=== PATIENT | female | born 1990 | race African-American/Black ===

== ENCOUNTER 2017-03-03 23:15 | Emergency (ER) | payer MEDICAID, OTHER ==
[~2017-03-03] VITALS: Ht 177.8 cm; Wt 63.5 kg
[2017-03-03] MEDS ORDERED: ANUSOL-HC25 MG RECTAL (23:39)
--- NOTE | 2017-03-03 23:39 | Emergency Room Report ---
History of Present Illness General Chief Complaint: Pain Source: Patient Present Illness HPI Is a 26-year-old female with 2 complaints. Her first complaint was that she's been having some rectal bleeding on and off for many years. Said that she wiped she noticed streaks of blood. No mass. No pain. No fever or chills. No nausea no vomiting. Her second complaint, which is her main complaint is that she has some STD exposure. She said a couple months ago she was told by her ex-boyfriend that he had Chlamydia. She was never treated. She has no symptom. She came in now to get treatment. Discharge. She was here before with herpes infection. Allergies: Coded Allergies: No Known Allergies (Unverified , 03/03/17) Patient History Past Medical History: see triage record, old chart reviewed Past Surgical History: none Pertinent Family History: none Social History: Denies: smoking Last Menstrual Period: FEBRUARY 06 Now: No : 1 Para: 1 Immunizations: other Reviewed Nursing Documentation: PMH: Agreed, PSxH: Agreed Nursing Documentation-PM Past Medical History: No Stated History Review of Systems Eye: Denies: blurred vision, eye pain ENT: Denies: ear pain, nose congestion, throat swelling Respiratory: Denies: cough, shortness of breath Cardiovascular: Denies: chest pain, palpitations Gastrointestinal: Denies: abdominal pain, diarrhea, nausea, vomiting Musculoskeletal: Denies: back pain, joint pain Skin: Denies: rash Neurological: Denies: headache, numbness Endocrine: Denies: increased thirst, increased urine Hematologic/Lymphatic: Denies: easy bruising All Other Systems: negative except mentioned in HPI Physical Exam Vital Signs Date Time Temp Pulse Resp B/P Pulse Ox O2 Delivery O2 Flow Rate FiO2 03/03/17 23:17 98.1 62 18 116/76 99 Room Air vitals normal Sp02 EP Interpretation: reviewed, normal General Appearance: well appearing, no apparent distress, alert Head: normocephalic, atraumatic Eyes: bilateral eye EOMI, bilateral eye PERRL ENT: hearing grossly normal, normal pharynx Neck: full range of motion, supple, no meningismus Respiratory: chest non-tender, lungs clear, normal breath sounds Cardiovascular #1: regular rate, rhythm, no murmur Gastrointestinal: normal bowel sounds, non tender, no mass, no organomegaly, no bruit, non-distended Musculoskeletal: back normal, gait/station normal, normal range of motion Psychiatric: mood/affect normal Skin: warm/dry Medical Decision Making Diagnostic Impression: Primary Impression: Exposure to STD Additional Impression: Hemorrhoids Qualified Codes: K64.9 - Unspecified hemorrhoids ER Course Is presents with exposure to STD. She is otherwise stable. Give her treatment for gonorrhea Chlamydia. Recommend outpatient testing for HIV, hepatitis, syphilis to name a few. This can be done anonymously. Last Vital Signs Date Time Temp Pulse Resp B/P Pulse Ox O2 Delivery O2 Flow Rate FiO2 03/03/17 23:17 98.1 62 18 116/76 99 Room Air Status: improved Disposition: HOME, SELF-CARE Condition: Stable Scripts Hydrocortisone Acetate* (ANUSOL-HC*) 25 Mg Supp.rect 1 SUPP RECTAL TWICE A DAY, #10 SUPP Prov: ELENI DUCKWORTH M.D. 03/03/17 Additional Instructions: Follow up with your doctor in 7 days. Return if worse. ELENI DUCKWORTH M.D. March 03, 2017 23:39
[2017-03-03] MEDS ORDERED: Azithromycin 250mg tab ORAL ONE (23:45)
[2017-03-04] VITALS: BP 116/76
== END 2017-03-04 00:05 | disposition home or self-care (01) ==
LOC: EMR 23:38
DX: K64.9 Unspecified hemorrhoids (principal); Z20.2 Contact with and (suspected) exposure to infections with a predominantly sexual mode of transmission
CPT/HCPCS: 96372; 99283; J0696; Q0144

== ENCOUNTER 2017-09-26 15:30 | Emergency (ER) | payer OTHER ==
[~2017-09-26] VITALS: Ht 177.8 cm; Wt 64.0 kg
[~2017-09-26 15:30] MED LIST: ANUSOL-HC25 MG RECTAL
[2017-09-26] MEDS ORDERED: METRONIDAZOLE60 GM TOPIC (15:46)
[2017-09-26] MEDS ORDERED: Lidocaine 1% MPF 10mg/ml 5ml INJ ONE (16:00)
[2017-09-26 16:04] LABS: APPEARANCE,URINE CLEAR; KETONES,URINE NEGATIVE (NEGATIVE); NITRITE,URINE NEGATIVE (NEGATIVE); PH,URINE 6 (4.5-8.0); PROTEIN,URINE NEGATIVE (NEGATIVE); UROBILINOGEN,URINE NORMAL MG/DL (0.0-1.0)
[2017-09-26 16:14] LABS: LEUKOCYTE ESTERASE ,URINE 1+ (NEGATIVE); RBC,URINE 0-2 /HPF (0 - 2)
[2017-09-26 16:15] LABS: BACTERIA,URINE OCCASIONAL /HPF; SQUAMOUS EPITHELIAL CELL,UR FEW /LPF (NONE/OCC)
[2017-09-26 16:20] VITALS: BP 108/68
--- NOTE | 2017-09-26 18:19 | Emergency Room Report ---
History of Present Illness General Chief Complaint: Female Urogenital Problems Source: Patient Present Illness HPI 26-year-old female presents to the emergency department complaining of dysuria, vaginal tenderness, burning sensation that she rates as 6/10 in severity after having unprotected intercourse last night. Patient states that she is not currently on control and is requesting Plan B. Patient also reports some lower abdominal pain she denies tenderness. Patient denies nausea, vomiting, fevers, chills, constipation or diarrhea. Patient wants to be tested for STDs she states that she was currently using metronidazole gel and does not know whether or not she has been having discharge because she's been using the gel. She denies bleeding. :swollen Tender lymph nodes, joint pain, external vaginal lesions or rash. Allergies: Coded Allergies: No Known Allergies (Unverified , 03/03/17) Patient History Past Medical History: see triage record Past Surgical History: none Pertinent Family History: none Last Menstrual Period: 09/04/17 Reviewed Nursing Documentation: PMH: Agreed, PSxH: Agreed Nursing Documentation-PMH Past Medical History: No Stated History Review of Systems All Other Systems: negative except mentioned in HPI Physical Exam Vital Signs Date Time Temp Pulse Resp B/P (MAP) Pulse Ox O2 Delivery O2 Flow Rate FiO2 09/26/17 15:40 98.2 61 17 103/65 98 Room Air Sp02 EP Interpretation: reviewed, normal General Appearance: no apparent distress, alert, GCS 15, non-toxic Head: normocephalic, atraumatic Eyes: bilateral eye normal inspection, bilateral eye PERRL ENT: hearing grossly normal, normal voice Neck: full range of motion Respiratory: lungs clear, normal breath sounds, speaking full sentences Cardiovascular #1: regular rate, rhythm Gastrointestinal: normal bowel sounds, non tender, soft, no guarding, no rebound Rectal: deferred Genitourinary: normal inspection, no CVA tenderness, cervix normal, ext genitalia/vag normal, os closed, other - vaginal wall laceration noted with scant bleeding at this time on the upper 12 o clock area. d/c noted in the vaginal vault. , no CMT Musculoskeletal: back normal, gait/station normal, normal range of motion, non- tender Neurologic: alert, oriented x3, responsive, motor strength/tone normal, sensory intact, speech normal Skin: normal color, no rash, warm/dry, well hydrated Medical Decision Making PA Attestation Dr. dupree is my supervising Physician whom patient management has been discussed with. Diagnostic Impression: Primary Impression: Vaginal laceration Qualified Codes: S31.41XA - Laceration without foreign body of vagina and vulva, initial encounter Additional Impression: Exposure to venereal disease ER Course 26-year-old female presents to the emergency department complaining of dysuria, vaginal tenderness, burning sensation that she rates as 6/10 in severity after having unprotected intercourse last night. Patient states that she is not currently on control and is requesting Plan B. Patient also reports some lower abdominal pain she denies tenderness. Patient denies nausea, vomiting, fevers, chills, constipation or diarrhea. Patient wants to be tested for STDs she states that she was currently using metronidazole gel and does not know whether or not she has been having discharge because she's been using the gel. She denies bleeding. :swollen Tender lymph nodes, joint pain, external vaginal lesions or rash. Ddx considered but are not limited to UTi , STI, G & C, trichomonas, Vaginitis , cervicitis, Bartholin gland cyst or cellulitis. Vital signs: are WNL, pt. is afebrile H&PE are most consistent with vaginal wall laceration and recent unprotected intercourse with need for emergency contraception in addition to prophylaxis for venereal disease exposure. ORDERS: - UA: unremarkable -Urine Hcg: Negative - Wet Mount Prep: negative ED INTERVENTIONS: -250mg Rocephin IM Discussed the patient prior to physical exam findings and encouraged followup with ENGINEERING DESIGNER also to avoid vaginal penetration for up to one week. D/W pt patient that she may experience some spotting. DISCHARGE: At this time pt. is stable for d/c to home. Will provide printed patient care instructions, and any necessary prescriptions. Care plan and follow up instructions have been discussed with the patient prior to discharge. Last Vital Signs Date Time Temp Pulse Resp B/P (MAP) Pulse Ox O2 Delivery O2 Flow Rate FiO2 09/26/17 15:40 98.2 61 17 103/65 98 Room Air Disposition: HOME, SELF-CARE Condition: Stable Scripts Levonorgestrel (PLAN B ONE-STEP) 1.5 Mg Tablet 1.5 MG PO ONCE, #1 TAB Prov: Marjan [email or web address] 09/26/17 Lidocaine (TOPICAINE 5) 113 Gm Gel..gram. 1 APPLIC TP TID Y for For Pain, #113 GM Prov: Marjan Tinajero 09/26/17 Referrals: [facility],REFERRING (PCP) Patient Instructions: Vaginal Laceration Additional Instructions: Take medications as directed. Follow up with a OBGYN in 3-5 days, even if your symptoms have resolved. * * --Please review list of primary care clinics, if you do not already have a primary care provider Return sooner to ED if new symptoms occur, or current symptoms become worse. - Please note that this Emergency Department Report was dictated using [employer] miller helper technology software, occasionally this can lead to erroneous entry secondary to interpretation by the dictation equipment. Marjan Tinajero Sep 26, 2017 18:19
[2017-09-26] MEDS ORDERED: PLAN B ONE-STE1.5 MG PO (18:23)
[2017-09-26] MEDS ORDERED: TOPICAINE 5113 GM TP (18:23)
[2017-09-26 18:40] VITALS: BP 116/72
[2017-09-26] MEDS ORDERED: VIBRAMYCIN100 MG ORAL (21:07)
== END 2017-09-26 18:40 | disposition home or self-care (01) ==
LOC: EMR 16:00
DX: S31.41XA Laceration without foreign body of vagina and vulva, initial encounter (principal); X58.XXXA Exposure to other specified factors, initial encounter; Y92.89 Other specified places as the place of occurrence of the external cause; Z20.2 Contact with and (suspected) exposure to infections with a predominantly sexual mode of transmission
CPT/HCPCS: 81003; 81025; 87210; 96372; 99284; J0696

== ENCOUNTER 2017-10-30 03:40 | Emergency (ER) | payer OTHER ==
[~2017-10-30] VITALS: Ht 177.8 cm; Wt 64.9 kg
[~2017-10-30 03:40] MED LIST changes: +METRONIDAZOLE60 GM TOPIC; +PLAN B ONE-STE1.5 MG PO; +TOPICAINE 5113 GM TP; +VIBRAMYCIN100 MG ORAL
[2017-10-30] MEDS ORDERED: NKM (03:53)
[2017-10-30 03:55] VITALS: BP 112/80
[2017-10-30 04:45] VITALS: BP 112/80
--- NOTE | 2017-10-30 04:50 | Emergency Room Report ---
History of Present Illness General Chief Complaint: Pain Source: Patient Present Illness HPI 26-year-old female no significant past medical history presents with her right arm pain. Patient states that she gradually noticed that her right forearm was hurting. Denies any trauma. States that it is her whole arm. Has been able to use it without difficulty. Denies any fever chills no trauma Allergies: Coded Allergies: No Known Allergies (Unverified , 03/03/17) Patient History Past Medical History: see triage record Past Surgical History: none Pertinent Family History: none Last Menstrual Period: now Now: No Reviewed Nursing Documentation: PMH: Agreed, PSxH: Agreed Nursing Documentation-PMH Past Medical History: No Stated History Review of Systems All Other Systems: negative except mentioned in HPI Physical Exam Vital Signs Date Time Temp Pulse Resp B/P (MAP) Pulse Ox O2 Delivery O2 Flow Rate FiO2 10/30/17 03:47 97.2 62 16 112/80 98 Room Air Sp02 EP Interpretation: reviewed, normal General Appearance: normal inspection, well appearing, no apparent distress, alert, GCS 15, non-toxic Head: normocephalic, atraumatic Eyes: bilateral eye normal inspection, bilateral eye PERRL, bilateral eye EOMI ENT: normal ENT inspection, normal pharynx, normal voice, moist mucus membranes Neck: normal inspection, full range of motion, supple Respiratory: normal inspection, lungs clear, normal breath sounds, no respiratory distress, no retraction, no wheezing, speaking full sentences, chest symmetrical Cardiovascular #1: normal inspection, regular rate, rhythm, no edema, normal capillary refill Cardiovascular #2: 2+ radial (R), 2+ radial (L) Gastrointestinal: normal inspection, non tender, soft, non-distended, no guarding Musculoskeletal: normal inspection, back normal, normal range of motion, non- tender, other - Right arm without any bony abnormalities, full range of motion, no ecchymosis, no redness, no tenderness throughout Neurologic: normal inspection, alert, oriented x3, responsive, motor strength/ tone normal, sensory intact, normal gait, speech normal Psychiatric: other - withdrawn affect Skin: normal inspection, normal color, no rash, warm/dry, well hydrated, normal turgor Medical Decision Making Diagnostic Impression: Primary Impression: Musculoskeletal pain of right upper extremity ER Course 26-year-old female, with right forearm pain, no trauma, took Aleve with relief DDX: Contusion, not concern was any fracture, very benign physical exam, has full range of motion, no signs of cellulitis, no swelling Plan: None in the emergency room, the patient already took Aleve ER course: Patient has remained stable during ED stay. She became extremely angry at me and wanted to speak to another doctor as she wants another opinion. States that she wants blood work for her arm pain. I informed patient that there is currently no indication for any blood work. She is nontoxic-appearing and her physical exam is unremarkable Disposition: Patient is to be discharged to home. Patient is instructed to follow up with their primary care doctor within 5 days. Please note that this Emergency Department Report was dictated using [employer] finisher technology software, occasionally this can lead to erroneous entry secondary to interpretation by the dictation equipment Last Vital Signs Date Time Temp Pulse Resp B/P (MAP) Pulse Ox O2 Delivery O2 Flow Rate FiO2 10/30/17 03:55 97.2 62 16 112/80 98 Room Air Disposition: HOME, SELF-CARE Condition: Improved Patient Instructions: Musculoskeletal Pain Amna Washington M.D. Oct 30, 2017 04:50
== END 2017-10-30 04:45 | disposition home or self-care (01) ==
LOC: EMR 04:29
DX: M79.601 Pain in right arm (principal)
CPT/HCPCS: 99282

== ENCOUNTER 2018-02-07 21:52 | Emergency (ER) | payer OTHER ==
[~2018-02-07] VITALS: Ht 182.9 cm; Wt 63.0 kg
[~2018-02-07 21:52] MED LIST changes: +NKM
[2018-02-07 22:29] LABS: APPEARANCE,URINE SLIGHTLY CLOUDY; BILIRUBIN, URINE NEGATIVE (NEGATIVE); GLUCOSE, URINE (UA) NEGATIVE (NEGATIVE); KETONES,URINE NEGATIVE (NEGATIVE); LEUKOCYTE ESTERASE ,URINE 2+ (NEGATIVE); NITRITE,URINE NEGATIVE (NEGATIVE); PH,URINE 7 (4.5-8.0); PROTEIN,URINE 1+ (NEGATIVE); UROBILINOGEN,URINE 1 MG/DL (0.0-1.0)
[2018-02-07 22:30] LABS: COLOR,URINE YELLOW
--- NOTE | 2018-02-07 22:56 | Emergency Room Report ---
History of Present Illness General Chief Complaint: Vaginal Source: Patient Present Illness HPI Is a 27-year-old female with no past medical history. She presents with chief complaint of a discharge for the last couple weeks. She also had recent STD testing was negative per patient. No history of STD. Last month was treated for bacterial vaginosis with MetroGel. That did not improve very much. Did some douching with vinegar. No other complaint. Does have discharged with vaginal itching. She is also asking for plan B was control pill. Allergies: Coded Allergies: No Known Allergies (Unverified , 03/03/17) Patient History Past Medical History: see triage record, old chart reviewed Past Surgical History: none Pertinent Family History: none Social History: Denies: smoking Last Menstrual Period: 01/25/18 Now: No Immunizations: other Reviewed Nursing Documentation: PMH: Agreed; PSxH: Agreed Nursing Documentation-PMH Past Medical History: No Stated History Review of Systems Eye: Denies: eye pain, blurred vision ENT: Denies: ear pain, nose congestion, throat swelling Respiratory: Denies: cough, shortness of breath Cardiovascular: Denies: chest pain, palpitations Gastrointestinal: Denies: abdominal pain, diarrhea, nausea, vomiting Genitourinary: Reports: vag bleed/dc Musculoskeletal: Denies: back pain, joint pain Skin: Denies: rash Neurological: Denies: headache, numbness Endocrine: Denies: increased thirst, increased urine Hematologic/Lymphatic: Denies: easy bruising All Other Systems: negative except mentioned in HPI Physical Exam Vital Signs Date Time Temp Pulse Resp B/P (MAP) Pulse Ox O2 Delivery O2 Flow Rate FiO2 02/07/18 21:59 97.8 71 16 97/58 97 Room Air 97.9 vitals normal Sp02 EP Interpretation: reviewed, normal General Appearance: well appearing, no apparent distress, alert Head: normocephalic, atraumatic Eyes: bilateral eye PERRL, bilateral eye EOMI ENT: hearing grossly normal, normal pharynx Neck: full range of motion, supple, no meningismus Respiratory: chest non-tender, lungs clear, normal breath sounds Cardiovascular #1: regular rate, rhythm, no murmur Gastrointestinal: normal bowel sounds, non tender, no mass, no organomegaly, no bruit, non-distended Genitourinary: other - Pelvic exam done with female RN as network security engineer. External exam normal. Internal exam show yellowish discharge. no cervical motion tenderness. No adnexal tenderness. Musculoskeletal: back normal, gait/station normal, normal range of motion Neurologic: alert, oriented x3 Psychiatric: mood/affect normal Skin: warm/dry Medical Decision Making Diagnostic Impression: Primary Impression: Bacterial vaginosis ER Course Patient with bacterial vaginosis. No evidence of UTI or ectopic. We'll discharge home. Last Vital Signs Date Time Temp Pulse Resp B/P (MAP) Pulse Ox O2 Delivery O2 Flow Rate FiO2 02/07/18 21:59 97.8 71 16 97/58 97 Room Air 97.9 Status: improved Disposition: HOME, SELF-CARE Condition: Stable Scripts Levonorgestrel (PLAN B ONE-STEP) 1.5 Mg Tablet 1.5 MG PO DAILY, #1 TAB Prov: ELENI DUCKWORTH M.D. 02/07/18 Metronidazole* (FLAGYL*) 500 Mg Tablet 500 MG ORAL BID, #14 TAB Prov: ELENI DUCKWORTH M.D. 02/07/18 Referrals: [facility],REFERRING (PCP) Additional Instructions: Follow-up your DrDakota in 7 days. Return if symptom worsen. ELENI DUCKWORTH M.D. Feb 07, 2018 22:56
[2018-02-07] MEDS ORDERED: METRONIDAZOLE500 MG ORAL (23:21)
[2018-02-07] MEDS ORDERED: PLAN B ONE-STE1.5 MG PO (23:21)
[2018-02-07 23:30] VITALS: BP 100/60
[2018-02-07 23:31] VITALS: BP 100/60
== END 2018-02-07 23:31 | disposition home or self-care (01) ==
LOC: EMR 22:19
DX: N76.0 Acute vaginitis (principal); B96.89 Other specified bacterial agents as the cause of diseases classified elsewhere
CPT/HCPCS: 81003; 81025; 87210; 99284

== ENCOUNTER 2018-04-04 12:46 | Emergency (ER) | payer OTHER ==
[~2018-04-04] VITALS: Ht 177.8 cm; Wt 60.8 kg
[~2018-04-04 12:46] MED LIST changes: +METRONIDAZOLE500 MG ORAL
[2018-04-04 14:18] LABS: APPEARANCE,URINE CLEAR; BILIRUBIN, URINE NEGATIVE (NEGATIVE); COLOR,URINE PALE YELLOW; GLUCOSE, URINE (UA) NEGATIVE (NEGATIVE); KETONES,URINE NEGATIVE (NEGATIVE); LEUKOCYTE ESTERASE ,URINE 1+ (NEGATIVE); NITRITE,URINE NEGATIVE (NEGATIVE); PH,URINE 7 (4.5-8.0); PROTEIN,URINE NEGATIVE (NEGATIVE); UROBILINOGEN,URINE NORMAL MG/DL (0.0-1.0)
--- NOTE | 2018-04-04 14:23 | Emergency Room Report ---
History of Present Illness General Chief Complaint: Abdominal Pain Source: Patient Present Illness HPI 27-year-old female patient presents to ER complaining of missed menstrual period and midepigastric pain. Denies pain acutely. Patient reports that last sexual activity was a month and a half ago, states she wants no other possible causes of missed menstrual period. Denies acute symptoms at this time. Denies dysuria, hematuria, abdominal pain, vaginal discharge, rash. Also complains of sore throat. Reports throat pain when running, and throat gets dry. Denies cough, reports history of smoking marijuana ER to arrival in ER. Denies vomiting, chest pain, shortness of breath. Denies fever. Denies other acute symptoms. reports smoking marijuana prior to ER visit. Allergies: Coded Allergies: No Known Allergies (Unverified , 03/03/17) Patient History Past Medical History: see triage record Last Menstrual Period: 02/28/18 Now: No - unknown Reviewed Nursing Documentation: PMH: Agreed; PSxH: Agreed Nursing Documentation-PMH Past Medical History: No Stated History Review of Systems All Other Systems: negative except mentioned in HPI Physical Exam Vital Signs Date Time Temp Pulse Resp B/P (MAP) Pulse Ox O2 Delivery O2 Flow Rate FiO2 04/04/18 12:57 98.5 61 16 107/73 97 Room Air 98.4 Sp02 EP Interpretation: reviewed, normal General Appearance: well appearing, no apparent distress, alert, GCS 15, non- toxic Head: normocephalic, atraumatic Eyes: bilateral eye normal inspection, bilateral eye PERRL ENT: hearing grossly normal, normal pharynx, no angioedema, normal voice, TMs + canals normal, uvula midline, moist mucus membranes Neck: full range of motion Respiratory: lungs clear, normal breath sounds, no rhonchi, no respiratory distress, no accessory muscle use, no wheezing, speaking full sentences Cardiovascular #1: regular rate, rhythm, no edema Gastrointestinal: non tender, soft, no mass, non-distended, no guarding, no rebound, other - negative Goyal, negative Rovsing Genitourinary: no CVA tenderness Musculoskeletal: back normal, digits/nails normal, gait/station normal, normal range of motion, non-tender Neurologic: alert, oriented x3, responsive, motor strength/tone normal, sensory intact Psychiatric: mood/affect normal Skin: no rash Lymphatic: no adenopathy Medical Decision Making PA Attestation Dr. Mejía is my supervising Physician whom patient management has been discussed with. Diagnostic Impression: Primary Impression: Amenorrhea Additional Impression: Sore throat ER Course Pt presents to ED c/o urinary symptoms. DDX considered but are not limited to cystitis, pyelonephritis, STI, vaginitis, . DDX considered but are not limited to pharyngitis, laryngitis, URI, peritonsillar abscess, tonsillitis. Low suspicion for peritonsillar abscess, no neck stiffness, no hot potato voice , no stridor. VITAL SIGNS are WNL, patient is afebrile. Ordered UA and urine . ER COURSE Physical exam benign, no tenderness to palpation of the abdomen, negative Goyal , no CVA tenderness bilaterally. No pharyngeal erythema, no tonsillar swelling or exudates, moist mucous membranes. Informed patient that symptoms likely related to her throat drying out during running. patient denies acute symptoms at this time. Drink plenty of fluids. Salt water gargles. UA results show negative nitrites, UA unremarkable, patient asymptomatic, low suspicion for UTI, does not require treatment with abx at this time. Urine negative. Informed patient that multiple possible causes of this. Including but not limited to hormone imbalance vs stress vs medication use. Informed patient to follow-up with primary care provider and discuss referral to CHIEF DIGITAL OFFICER for further evaluation and treatment as needed. If concern for STI, followup with STI clinic for testing and treatment. Denies STI concern. wear condoms during sex. do not smoke marijuana. Patient is resting comfortably in chair, nontoxic appearing, in no acute distress. Patient states they feel better and is ready to go home. Informed patient's to schedule appointment with PCP for further treatment and referral for multiple complaints. Provided patient with contact list for low cost and free healthcare clinics so that she may follow-up sooner if unable to make appointment. DISCHARGE -Rx provided for Tylenol Patient is stable for discharge. Patient resting comfortably, in no acute distress, nontoxic appearing, talking without difficulty. Will provide with patient care instructions and any necessary prescriptions. Patient understands and agrees to treatment plan. Patient encouraged to drink plenty of fluids. Patient to take medication as instructed. Care plan and follow-up instructions provided. Patient questions asked and answered. Reports understanding and agreement to treatment plan. Patient instructed to follow-up with primary care provider in 3 - 5 days. ER precautions given. Patient instructed to return to ER immediately for any new or worsening of symptoms. Including but not limited to fever, abdominal pain , intractable vomiting. - Please note that this Emergency Department Report was dictated using [employer] billing clerk technology software, occasionally this can lead to erroneous entry secondary to interpretation by the dictation equipment. Labs Test 04/04/18 14:00 Urine Color Pale yellow Urine Appearance Clear Urine pH 7 (4.5-8.0) Urine Specific [place] 1.005 (1.005-1.035) Urine Protein Negative (NEGATIVE) Urine Glucose (UA) Negative (NEGATIVE) Urine Ketones Negative (NEGATIVE) Urine Occult Blood Negative (NEGATIVE) Urine Nitrite Negative (NEGATIVE) Urine Bilirubin Negative (NEGATIVE) Urine Urobilinogen Normal MG/DL (0.0-1.0) Urine Leukocyte Esterase 1+ (NEGATIVE) Urine RBC 0-2 /HPF (0 - 2) Urine WBC 0-2 /HPF (0 - 2) Urine Squamous Epithelial Cells Few /LPF (NONE/OCC) Urine Bacteria Occasional /HPF (NONE) Urine HCG, Qualitative Negative (NEGATIVE) Last Vital Signs Date Time Temp Pulse Resp B/P (MAP) Pulse Ox O2 Delivery O2 Flow Rate FiO2 04/04/18 12:57 98.5 61 16 107/73 97 Room Air 98.4 Disposition: HOME, SELF-CARE Condition: Stable Scripts Acetaminophen* (TYLENOL EXTRA STRENGTH*) 500 Mg Tablet 500 MG ORAL Q8H PRN for Prn Headache/Temp > 101, #30 TAB 0 Refills Prov: Harpreet Del Rosario 04/04/18 Patient Instructions: Primary Amenorrhea, Secondary Amenorrhea, Sore Throat, [id number] Additional Instructions: Followup with primary care provider in 3 -5 days. Follow-up with CHIEF DIGITAL OFFICER in 3-5 days. Take medications as directed. Salt water gargles for sore throat. Do not smoke marijuana. Patient questions asked and answered. ER precautions given, patient instructed to return to ER immediately for any new or worsening of symptoms. Harpreet Del Rosario Apr 04, 2018 14:23
[2018-04-04 14:45] VITALS: BP 107/73
[2018-04-04] MEDS ORDERED: TYLENOL EXTRA500 MG ORAL (15:07)
[2018-04-04 16:08] VITALS: BP 107/73
== END 2018-04-04 16:08 | disposition home or self-care (01) ==
LOC: EMR 15:20
DX: N91.2 Amenorrhea, unspecified (principal); R07.0 Pain in throat
CPT/HCPCS: 81003; 81025; 99283

== ENCOUNTER 2018-06-02 22:53 | Emergency (ER) | payer OTHER ==
[~2018-06-02] VITALS: Ht 177.8 cm; Wt 60.3 kg
[~2018-06-02 22:53] MED LIST changes: +TYLENOL EXTRA500 MG ORAL
[2018-06-02 23:33] VITALS: BP 129/83
[2018-06-02] MEDS ORDERED: CEPHALEXIN500 MG ORAL (23:42)
[2018-06-02] MEDS ORDERED: HYDROCORTISONE-30 GM TOPIC (23:42)
--- NOTE | 2018-06-03 01:14 | Emergency Room Report ---
History of Present Illness General Chief Complaint: Pain Source: Patient Present Illness HPI 27-year-old female presents ED complaining of rash to her left foot. States that symptoms started after she got a pedicure on Thursday. States she has itchiness to her foot and leg. States there is a rash on the top of her foot. Denies any fevers chills. Denies any discharge. No other aggravating relieving factors. Denies any other associated symptoms Allergies: Coded Allergies: No Known Allergies (Unverified , 03/03/17) Patient History Past Medical History: none Past Surgical History: none Pertinent Family History: none Social History: Denies: smoking, alcohol use, drug use Last Menstrual Period: may 06, 2018 Now: No Immunizations: UTD Reviewed Nursing Documentation: PMH: Agreed; PSxH: Agreed Nursing Documentation-PMH Past Medical History: No Stated History Review of Systems All Other Systems: negative except mentioned in HPI Physical Exam Vital Signs Date Time Temp Pulse Resp B/P (MAP) Pulse Ox O2 Delivery O2 Flow Rate FiO2 06/02/18 23:20 98.8 83 18 129/83 99 Room Air 98.8 Sp02 EP Interpretation: reviewed, normal General Appearance: no apparent distress, alert, GCS 15, non-toxic Head: normocephalic Eyes: bilateral eye normal inspection, bilateral eye PERRL ENT: normal ENT inspection Neck: normal inspection Respiratory: normal inspection Cardiovascular #1: normal inspection Gastrointestinal: normal inspection Rectal: deferred Genitourinary: no CVA tenderness Musculoskeletal: back normal, gait/station normal, normal range of motion, non- tender Neurologic: alert, oriented x3, responsive, motor strength/tone normal, sensory intact, speech normal Psychiatric: normal inspection Skin: rash - vesicular rash to dorsum of foot Lymphatic: normal inspection Medical Decision Making Diagnostic Impression: Primary Impression: Rash ER Course Hospital Course 27-year-old female presents to ED with itchiness/rash to foot Differential diagnoses include: Cellulitis, dermatitis, insect bite, abscess Clinical course Patient placed on stretcher. After initial history, physical exam reveals a young female in no acute distress. On exam there is a patch on the dorsum of foot with vesicles. Nonerythematous. No induration. The foot is warm and dry. No swelling or erythema or induration suggestive of cellulitis. The area between the toes is clean and dry with no signs of a fungal infection Discussed findings with patient. Reassurance given. We will treat as contact dermatitis. Recommend close follow-up with dermatology Diagnosis - rash stable and discharged to home with prescription for hydrocortisone cream, keflex. Instructed to followup with PMD. Instructed return to ED if symptoms recur or worsen Last Vital Signs Date Time Temp Pulse Resp B/P (MAP) Pulse Ox O2 Delivery O2 Flow Rate FiO2 06/02/18 23:33 98.8 18 129/83 99 Room Air 98.8 06/02/18 23:20 83 Status: improved Disposition: HOME, SELF-CARE Condition: Stable Scripts Cephalexin* (KEFLEX*) 500 Mg Capsule 500 MG ORAL EVERY 6 HOURS for 7 Days, CAP Prov: Obey Mejía MD 06/02/18 Hydrocortisone/Aloe Vera 1%* (HYDROCORTISONE-ALOE 1% CREAM*) Y Cr 1 APPLIC TOPIC Q6H PRN for Itching, #30 GM Prov: Obey Mejía MD 06/02/18 Referrals: [facility],REFERRING (PCP) Patient Instructions: Contact Dermatitis, [id number] Obey Mejía MD Jun 03, 2018 01:14
== END 2018-06-02 23:45 | disposition home or self-care (01) ==
LOC: EMR 23:40
DX: R21 Rash and other nonspecific skin eruption (principal); L29.9 Pruritus, unspecified
CPT/HCPCS: 99283

== ENCOUNTER 2018-09-09 04:03 | Emergency (ER) | payer OTHER ==
[~2018-09-09] VITALS: Ht 177.8 cm; Wt 61.7 kg
[~2018-09-09 04:03] MED LIST changes: +CEPHALEXIN500 MG ORAL; +HYDROCORTISONE-30 GM TOPIC
[2018-09-09 04:30] VITALS: BP 112/71
--- NOTE | 2018-09-09 04:54 | Emergency Room Report ---
History of Present Illness General Chief Complaint: Female Urogenital Problems Source: Patient Present Illness HPI This is a 27-year-old female with no cerumen past medical history. She presents with chief complaint of vaginal pain and itching. Onset for about a week now. Also with a greenish yellowish discharge. She does use fragrant soap to clean herself. Currently not sexually active for several months. No bleeding. Does have some dysuria. Denies any other complaint. Allergies: Coded Allergies: No Known Allergies (Unverified , 03/03/17) Patient History Past Medical History: see triage record, old chart reviewed Past Surgical History: none Pertinent Family History: none Social History: Denies: smoking Last Menstrual Period: 07/2018 Now: No Immunizations: other Reviewed Nursing Documentation: PMH: Agreed; PSxH: Agreed Nursing Documentation-PMH Past Medical History: No Stated History Review of Systems Eye: Denies: eye pain, blurred vision ENT: Denies: ear pain, nose congestion, throat swelling Respiratory: Denies: cough, shortness of breath Cardiovascular: Denies: chest pain, palpitations Gastrointestinal: Denies: abdominal pain, diarrhea, nausea, vomiting Genitourinary: Reports: dysuria, vag bleed/dc Musculoskeletal: Denies: back pain, joint pain Skin: Denies: rash Neurological: Denies: headache, numbness Endocrine: Denies: increased thirst, increased urine Hematologic/Lymphatic: Denies: easy bruising All Other Systems: negative except mentioned in HPI Physical Exam Vital Signs Date Time Temp Pulse Resp B/P (MAP) Pulse Ox O2 Delivery O2 Flow Rate FiO2 09/09/18 04:10 98.2 58 16 113/73 99 Room Air vitals normal Sp02 EP Interpretation: reviewed, normal General Appearance: well appearing, no apparent distress, alert Head: normocephalic, atraumatic Eyes: bilateral eye PERRL, bilateral eye EOMI ENT: hearing grossly normal, normal pharynx Neck: full range of motion, supple, no meningismus Respiratory: chest non-tender, lungs clear, normal breath sounds Cardiovascular #1: regular rate, rhythm, no murmur Gastrointestinal: normal bowel sounds, non tender, no mass, no organomegaly, no bruit, non-distended Genitourinary: other - Pelvic exam done with female RN as customer associate. External exam normal. Internal exam show yellowish discharge. Musculoskeletal: back normal, gait/station normal, normal range of motion Psychiatric: mood/affect normal Skin: warm/dry Medical Decision Making Diagnostic Impression: Primary Impression: Bacterial vaginosis ER Course Patient presents with vaginal discharge consistent with bacterial vaginosis. No evidence of Trichomonas or STD. Nontender tract infection. Not . We'll discharge home. Last Vital Signs Date Time Temp Pulse Resp B/P (MAP) Pulse Ox O2 Delivery O2 Flow Rate FiO2 09/09/18 04:10 98.2 58 16 113/73 99 Room Air Status: improved Disposition: HOME, SELF-CARE Condition: Stable Scripts Metronidazole* (FLAGYL*) 500 Mg Tablet 500 MG ORAL BID, #14 TAB Prov: Ulisses Hill MD 09/09/18 Referrals: [facility],REFERRING (PCP) Additional Instructions: Follow-up with your doctor in 7 days. No douching or fragrant soap. Return if symptom worsen. Ulisses Hill MD Sep 09, 2018 04:54
[2018-09-09 05:13] LABS: APPEARANCE,URINE CLEAR; BILIRUBIN, URINE NEGATIVE (NEGATIVE); GLUCOSE, URINE (UA) NEGATIVE (NEGATIVE); KETONES,URINE NEGATIVE (NEGATIVE); NITRITE,URINE NEGATIVE (NEGATIVE); PH,URINE 6.5 (4.5-8.0); PROTEIN,URINE NEGATIVE (NEGATIVE); UROBILINOGEN,URINE NORMAL MG/DL (0.0-1.0)
[2018-09-09 05:26] LABS: COLOR,URINE YELLOW; LEUKOCYTE ESTERASE ,URINE 1+ (NEGATIVE)
[2018-09-09] MEDS ORDERED: METRONIDAZOLE500 MG ORAL (05:55)
[2018-09-09 05:58] VITALS: BP 112/71
== END 2018-09-09 05:58 | disposition home or self-care (01) ==
LOC: EMR 04:41
DX: N76.0 Acute vaginitis (principal); B96.89 Other specified bacterial agents as the cause of diseases classified elsewhere
CPT/HCPCS: 81003; 81025; 87210; 99283

== ENCOUNTER 2018-12-15 20:33 | Emergency (ER) | payer OTHER ==
[~2018-12-15] VITALS: Ht 177.8 cm; Wt 63.5 kg
[2018-12-15 21:23] VITALS: BP 122/80
--- NOTE | 2018-12-15 21:26 | NUR ---
ED Nurse Note: Pt states sore throat, coughing, pain when breathing, both earache, runny nose for 10 days. pain level 8/10. pt vital signs are within normal limits. pt is alert and oriented times 4. pt is able to ambulate. respritory assessment and vital signs are within normal limits.
--- NOTE | 2018-12-15 21:32 | Emergency Room Report ---
History of Present Illness General Chief Complaint: Flu Like Symptoms Source: Patient Present Illness HPI Patient presents with other family member Reports that she is the aunt of another patient who is here patient has had some URI symptoms including sore throat body ache mild cough Denies any vomiting or diarrhea symptoms ongoing now for the past 7 days Denies any recent travel denies any rash Sore throat is 5 out of 10 worse with swallowing Allergies: Coded Allergies: No Known Allergies (Unverified , 03/03/17) Patient History Past Medical History: see triage record Pertinent Family History: none Last Menstrual Period: Nov 29, 2018 Now: No Reviewed Nursing Documentation: PMH: Agreed; PSxH: Agreed Nursing Documentation-PMH Past Medical History: No Stated History Review of Systems All Other Systems: negative except mentioned in HPI Physical Exam Vital Signs Date Time Temp Pulse Resp B/P (MAP) Pulse Ox O2 Delivery O2 Flow Rate FiO2 12/15/18 21:16 98.4 91 18 124/81 98 Room Air 12/15/18 21:23 99 Sp02 EP Interpretation: reviewed, normal General Appearance: well appearing, no apparent distress Head: normocephalic, atraumatic Eyes: bilateral eye PERRL, bilateral eye EOMI ENT: hearing grossly normal, TMs + canals normal, uvula midline, pharyngeal erythema Neck: full range of motion, supple, no meningismus, no bony tend Respiratory: lungs clear, normal breath sounds, no rhonchi, no respiratory distress, no retraction, no accessory muscle use Cardiovascular #1: normal peripheral pulses, regular rate, rhythm, no edema, no gallop, no JVD, no murmur Gastrointestinal: normal bowel sounds, non tender, soft, no mass, no organomegaly, non-distended, no guarding, no hernia, no pulsatile mass, no rebound Genitourinary: no CVA tenderness Musculoskeletal: normal inspection Neurologic: oriented x3, responsive, joy operator helper III-XII nml as tested, motor strength/ tone normal, sensory intact Psychiatric: mood/affect normal Skin: normal color, no rash, warm/dry, palpation normal Lymphatic: normal inspection, no adenopathy Medical Decision Making Diagnostic Impression: Primary Impression: Pharyngitis ER Course Patient has multiple differentials Including but not limited to influenza, meningitis, pneumonia Patient does not appear septic or toxic has a benign medical evaluation We do find findings consistent with pharyngitis given the erythema and findings patient is placed on antibiotics and will have initial conservative outpatient trial Last Vital Signs Date Time Temp Pulse Resp B/P (MAP) Pulse Ox O2 Delivery O2 Flow Rate FiO2 12/15/18 21:23 98.4 81 18 122/80 98 Room Air 12/15/18 21:23 99 Status: unchanged Disposition: HOME, SELF-CARE Condition: Stable Additional Instructions: Patient is provided with the discharge instructions notified to follow up with primary doctor in the next 2-3 days otherwise return to the er with any worsening symptoms. Please note that this report is being documented using [employer] technology. This can lead to erroneous entry secondary to incorrect interpretation by the dictating instrument. José Valle DO Dec 15, 2018 21:32
[2018-12-15] MEDS ORDERED: IBUPROFEN600 MG ORAL (21:37)
[2018-12-15] MEDS ORDERED: AMOXICILLIN500 MG ORAL (21:37)
[2018-12-15 21:51] VITALS: BP 117/84
--- NOTE | 2018-12-15 21:53 | NUR ---
ED Nurse Note: Pt cleared by Health Care Provider for discharge. DC instructions/prescriptions given and explained to pt and verbalized understanding of teachings. All medical devices such as ID band removed. Pt AAO x4, ambulatory and left with all personal belongings. pt is instructed to follow up with primary MD as soon as possible. pt is insturcted to return and seek medical attention if reoccurance of symptoms. pt has left with all DC notes and has been able to teach back all instructions.
== END 2018-12-15 21:53 | disposition home or self-care (01) ==
LOC: EMR 20:57
DX: J02.9 Acute pharyngitis, unspecified (principal); M79.10 Myalgia, unspecified site; R05 Cough; R06.00 Dyspnea, unspecified; H92.03 Otalgia, bilateral
CPT/HCPCS: 99282

== ENCOUNTER 2019-10-23 18:47 | Emergency (ER) | payer OTHER ==
[~2019-10-23] VITALS: Ht 177.8 cm; Wt 64.9 kg
[~2019-10-23 18:47] MED LIST changes: +AMOXICILLIN500 MG ORAL; +IBUPROFEN600 MG ORAL
--- NOTE | 2019-10-23 19:04 | NUR ---
ED Nurse Note: Patient walked into ED from home d/t right earache lasting 2 weeks radiating to right side of jaw and neck. Patient rates pain 7/10. Patient aao x 4 and ambulatory. No acute distress noted.
[2019-10-23 19:06] VITALS: BP 102/69
--- NOTE | 2019-10-23 19:11 | NUR ---
ED Nurse Note: ERMD at bedside
--- NOTE | 2019-10-23 19:17 | Emergency Room Report ---
History of Present Illness General Chief Complaint: Earache Source: Patient Present Illness HPI Patient is a 28-year-old female presents after increased right-sided earache. Patient had reports having increased ringing in her ears. Patient had not been having any vomiting. She reports having some decreased hearing. She reports having no vertigo sensation. Some associated dental pain to the lower mandible. Patient denies any fever. Allergies: Coded Allergies: No Known Allergies (Unverified , 03/03/17) Patient History Past Medical History: see triage record Last Menstrual Period: 10/20/2019 Reviewed Nursing Documentation: PMH: Agreed; PSxH: Agreed Nursing Documentation-PMH Past Medical History: No Stated History Review of Systems All Other Systems: negative except mentioned in HPI Physical Exam Vital Signs Date Time Temp Pulse Resp B/P (MAP) Pulse Ox O2 Delivery O2 Flow Rate FiO2 10/23/19 18:56 97.7 66 16 102/69 (80) 99 Room Air Sp02 EP Interpretation: reviewed, normal General Appearance: normal inspection, well appearing, no apparent distress, alert, GCS 15 Head: atraumatic ENT: normal voice, TMs + canals normal, pharyngeal erythema Neck: normal inspection, full range of motion, supple, no bony tend Respiratory: normal inspection, lungs clear, normal breath sounds, no respiratory distress, no retraction, no wheezing Cardiovascular #1: regular rate, rhythm, no edema Gastrointestinal: normal inspection, normal bowel sounds, non tender, soft, no guarding, no hernia Genitourinary: no CVA tenderness Musculoskeletal: normal inspection, back normal, normal range of motion Neurologic: alert, motor strength/tone normal, photography spotter III-XII nml as tested, oriented x3, responsive, speech normal, normal inspection Psychiatric: normal inspection, judgement/insight normal, mood/affect normal Medical Decision Making Diagnostic Impression: Primary Impression: Earache, right ER Course Patient presented for ear pain. Differential diagnosis included was not limited to otitis media, malignant otitis externa, foreign body, cellulitis, mastoiditis, carotid dissection, myocardial infarction among others. Patient appears to have some right-sided tonsillar infection. Patient given prescription for antibiotics patient advised [id number] antihistamines. Right TM does not appear to be infected. Patient was advised to follow up with primary care physician for recheck. Patient to return if worse. This medical record is generated with [employer] log sorting supervisor software. There may be some log sorting supervisor discrepancies related to use of this software Last Vital Signs Date Time Temp Pulse Resp B/P (MAP) Pulse Ox O2 Delivery O2 Flow Rate FiO2 10/23/19 19:06 97.7 78 16 102/69 99 Room Air Status: improved Disposition: HOME, SELF-CARE Condition: Stable Scripts Amoxicillin* (AMOXIL*) 500 Mg Capsule 500 MG ORAL EVERY 8 HOURS, #30 CAP Prov: Bentley Crews MD 10/23/19 Ibuprofen* (MOTRIN*) 600 Mg Tablet 600 MG ORAL Q8H PRN for For Pain, #30 TAB 0 Refills Prov: Bentley Crews MD 10/23/19 Patient Instructions: Tonsillitis, [id number] Bentley Crews MD Oct 23, 2019 19:17
[2019-10-23] MEDS ORDERED: IBUPROFEN600 MG ORAL (19:18)
[2019-10-23] MEDS ORDERED: AMOXICILLIN500 MG ORAL (19:18)
[2019-10-23 19:22] VITALS: BP 115/72
--- NOTE | 2019-10-23 19:22 | NUR ---
ER DISCHARGE NOTE: Patient is cleared to be discharged per ERMD, pt is aox4, on room air, with stable vital signs. pt was given dc and prescription instructions, pt was able to verbalize understanding. pt ID band removed. Pt stable upon discharge.
== END 2019-10-23 19:22 | disposition home or self-care (01) ==
LOC: EMR 19:22
DX: H92.01 Otalgia, right ear (principal)
CPT/HCPCS: 99282

== ENCOUNTER 2020-05-18 15:33 | Emergency (ER) | payer MEDICAID, OTHER ==
[~2020-05-18 15:33] MED LIST changes: +MACROBID100 MG ORAL; +PRENATAL VITAM1 EACH PO
== END 2020-05-18 17:01 | disposition home or self-care (01) ==
DX: O26.93 Pregnancy related conditions, unspecified, third trimester (principal); Z3A.31 31 weeks gestation of pregnancy; R10.30 Lower abdominal pain, unspecified
CPT/HCPCS: 76805; 76817; Z7502